=== PATIENT | female | born 1985 | race Caucasian/White ===

== ENCOUNTER 2024-10-03 15:36 | Emergency (ER) | payer OTHER, SELFPAY ==
[2024-10-03] VITALS (15 sets, daily range): BP systolic 106–122; BP diastolic 66–88; PULSE 70–92; RESP 15–25; TEMP 36.6; O2SAT 96–99
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
--- NOTE | 2024-10-03 16:30 | DI.RAD_ITS ---
Exam(s) XR WRIST RT COMPLETE EXAM: XR WRIST RT COMPLETE CLINICAL HISTORY: Right wrist pain. TECHNIQUE: 2D digital imaging was performed. COMPARISON: No exams were available for comparison FINDINGS: 3 views There is no evidence of fracture of the distal radius and ulna no significant ulnar variance. Scaphoid and scapholunate distance appear unremarkable. There is no carpal dislocation. However, on the posterior aspect of the carpal bones there is a 3.5 x 3.3 mm os ossific density which may be a fragment off the triquetrum bone. IMPRESSION: There is a dorsally located 3.5 x 3.3 mm calcific density suspicious for triquetrum fracture. Correlation with site of tenderness is recommended. DATA REPOSITORY: RADIATION DOSE DELIVERED:
--- NOTE | 2024-10-03 16:30 | DI.RAD_ITS ---
Exam(s) XR CLAVICLE LT EXAM: XR CLAVICLE LT CLINICAL HISTORY: Left clavicular pain. TECHNIQUE: 2D digital imaging was performed. COMPARISON: No exams were available for comparison FINDINGS: Two views There is a displaced midshaft fracture of the clavicle. This appears to be adjacent to a site of prior healed fracture at the junction of the mid-lateral 3rd of the clavicle. There is no separation of the AC joint. IMPRESSION: Displaced midshaft fracture of the left clavicle. DATA REPOSITORY: RADIATION DOSE DELIVERED:
== END 2024-10-03 18:15 | disposition home or self-care (01) ==
LOC: ER 17:26
PROVIDERS: Emergency Provider Emergency Medicine
DX: S42.022A Displaced fracture of shaft of left clavicle, initial encounter for closed fracture; M25.531 Pain in right wrist; Z3A.12 12 weeks gestation of pregnancy; W13.1XXA Fall from, out of or through bridge, initial encounter; Y93.55 Activity, bike riding; Y92.89 Other specified places as the place of occurrence of the external cause; O9A.211 Injury, poisoning and certain other consequences of external causes complicating pregnancy, first trimester
CPT/HCPCS: 76604; 76815; 76857; 99284; 73000; 73110